=== PATIENT | male | born 1985 | race Caucasian/White ===

== ENCOUNTER 2016-05-26 21:43 | Emergency (ER) | payer SELFPAY ==
[~2016-05-26] VITALS: Ht 182.9 cm; Wt 95.0 kg
[2016-05-26 21:47] VITALS: BP 140/85
== END 2016-05-26 22:25 | disposition home or self-care (01) ==
LOC: ED 22:19
DX: G89.29 Other chronic pain (principal); M51.36 Other intervertebral disc degeneration, lumbar region; M54.16 Radiculopathy, lumbar region; M54.5 Low back pain
CPT/HCPCS: 99283

== ENCOUNTER 2017-07-06 20:18 | Emergency (ER) | payer SELFPAY ==
[~2017-07-06] VITALS: Ht 182.9 cm; Wt 98.3 kg
[2017-07-06 20:19] VITALS: BP 134/91
== END 2017-07-06 21:48 | disposition home or self-care (01) ==
LOC: ED 21:15
DX: M51.26 Other intervertebral disc displacement, lumbar region (principal); M48.061 Spinal stenosis, lumbar region without neurogenic claudication
CPT/HCPCS: 99283

== ENCOUNTER 2017-12-14 15:20 | Emergency (ER) | payer SELFPAY ==
[~2017-12-14] VITALS: Ht 182.9 cm; Wt 93.0 kg
[2017-12-14 15:26] VITALS: BP 129/72
== END 2017-12-14 16:13 | disposition home or self-care (01) ==
LOC: ED 15:50
DX: G89.29 Other chronic pain (principal); M54.5 Low back pain
CPT/HCPCS: 99283

== ENCOUNTER 2019-02-23 18:02 | Emergency (ER) | payer MEDICAID ==
[~2019-02-23] VITALS: Ht 182.9 cm; Wt 89.1 kg
[2019-02-23 18:13] VITALS: BP 135/81
[2019-02-23] MEDS ORDERED: KETOROLAC 30 MG/1 ML IM ONE (18:30)
[2019-02-23] MEDS ORDERED: METHOCARBAMOL 750 MG TABLET PO ONE (18:30)
[2019-02-23] MEDS ORDERED: KETOROLAC 30 MG/1 ML ONE (18:39)
[2019-02-23] MEDS ORDERED: METHOCARBAMOL 750 MG TABLET ONE (18:39)
== END 2019-02-23 20:12 | disposition home or self-care (01) ==
LOC: ED 19:50
DX: S39.012A Strain of muscle, fascia and tendon of lower back, initial encounter (principal); X58.XXXA Exposure to other specified factors, initial encounter; Y93.89 Activity, other specified; Y92.89 Other specified places as the place of occurrence of the external cause; Y99.8 Other external cause status
CPT/HCPCS: 72110; 96372; 99283; J1885